=== PATIENT | female | born 1955 | race Caucasian/White ===

== ENCOUNTER → 2016-08-23 | Outpatient (CLI) | payer BC ==
[2013-01-29 12:27] VITALS: BP 121/69
[2016-08-23 17:41] LABS: ALANINE AMINOTRANSFERASE 14 Units/L (12-78); ASPARTATE AMINO TRANSFERASE 10 Units/L (15-37)
== END ==
LOC: LAB 17:00
PROVIDERS: ATTEND Podiatrist
DX: B35.1 Tinea unguium (principal)
CPT/HCPCS: 36415; 84450; 84460

== ENCOUNTER 2017-06-03 17:40 | Emergency (ER) | payer BC ==
[2017-06-03 17:50] VITALS: BMI 28.3
--- NOTE | 2017-06-03 18:55 | DR.GENAD ---
HPI - PCP Primary Care Physician: HORACE FRASER - HPI Comment HPI Comment: GETTING WEAK. NO FEVER. NO URI SYMYOMS. NOT HOLDING DOWN FLUIDS. - Complaint/Symptoms Chief Complaint Doctors Comments: ABDOMINAL PAIN, CRAPING WITH N/V/D FOR SEVERAL HOURS. Chief Complaint:: PT C/O N/V/D THAT STARTED THIS AM AT 0700 PT STATES " I HOPE I DON'T HAVE THE FLU".. PT DENIES FEVER CCC. PT C/O CRAMPING IN HER ABD ALSO. - Nurses notes reviewed Nurses Notes Review: Yes - Source History Provided: Patient - Mode of Arrival Mode of Arrival: Ambulatory - Timing Onset of Chief Complaint: 06/03/17 Came on: Suddenly - Duration Duration: Constant Duration: Hours - Severity Severity: Moderate PMH - PMH Past Medical History: Yes Past Medical History: Diabetes Past Surgical History: Yes Surgical History: Angioplasty/Stents, Appendectomy, , Cholecystectomy Past Surgical History Comment: 7 SURGERIES SINCE 1981, KNEE WRISTS, THROAT , TUBAL - Family History History of Family Medical Conditions: Yes Family Medical History: Cancer, Coronary Artery Disease, Hypertension Family Medical History Comment: BROTHER HAS HEART CONDITION, - Social History Does patient currently use any type of tobacco product: Yes Have you used tobacco products in the last 12 months: Yes Type of Tobacco Use: None How many years tobacco product used: 35 Does any household member use tobacco: No Alcohol Use: None Do you use any recreational Drugs:: No Lives With: Alone Lives Where: Home - infectious screening In the last 2 months have you had wt loss of >10#?: NO Have you had fever, night sweats or hemotysis?: No Have you traveled outside the country in the last 6 months?: No Isolation: Standard ROS - Review of Systems Constitutional: Weakness, Fatigue, Loss of Appetite. negative: Chills, Fever Eyes: No Symptoms Reported. negative: Eye Pain, Discharge ENTM: No Symptoms Reported. negative: Ear Pain, Nose Discharge, Nose Congestion , Throat Pain Respiratoy: Non-Productive Cough Cardiovascular: No Symptoms Reported Gastrointestinal/Abdominal: Abdominal Pain, Diarrhea, Nausea, Vomiting Genitourinary: No Symptoms Reported Neurological: No Symptoms Reported Musculoskeletal: Muscle Pain Integumentary: No Symptoms Reported Endocrine: No Symptoms Reported All Other Systems: Reviewed and Negative PE - Vital Signs Vitals: Temperature 96.9 F Pulse Rate 101 Respiratory Rate 18 Blood Pressure [Right Arm] 121/69 Blood Pressure 121/69 O2 Sat by Pulse Oximetry 97 - General Limitations: No Limitations General Appearance: Alert - Head Head Exam: Normal Inspection - Eyes Eye exam: Normal Appearance - ENT ENT Exam: Normal External Ear Exam External Ear Exam: Normal External Inspection TM/Canal Exam: Bilateral Normal Nose Exam: Normal Nose Exam Mouth Exam: Normal Inspection Throat Exam: Normal Inspection - Neck Neck Exam: Trachea Midline - Chest Chest Inspection: Symmetric Chest Wall Rise - Respiratory Respiratory Exam: Normal Lung Sounds Bilat Respiratory Exam: Bilateral Clear to Auscultation - Cardiovascular Cardiovascular Exam: Regular Rate, Normal Rhythm, Normal Heart Sounds - Abdominal Exam Abdominal Exam: Normal Bowel Sounds, Soft, Tenderness Abdominal Tenderness: Diffuse, Moderate - Extremities Extremities Exam: Normal Inspection - Back Back Exam: Normal Inspection - Neurologic Neurological Exam: Alert, Oriented X3 - Psychiatric Psychiatric Exam: Normal Affect, Normal Mood - Skin Skin Exam: Normal Color MDM - Additional Information Additional Information Obtained From: Family - Differential Diagnosis Differential Diagnosis: ABDOMNINAL PAIN, GASTROENTERITIS Course - Treatment Treatment: SEE ORDERS. IV FLUIDS AND IV NAUSEA MED IN ED. - Reevaluation 1st: Improved - Education/Counseling Education/Counseling: Patient, Family, Education Educated On: Treatment, Diagnosis, Needs for Follow Up ROR - Labs Reviewed Laboratory Results Reviewed?: Yes Result Diagrams: 06/03/17 19:10 06/03/17 19:10 Laboratory: WBC 8.3 X10^3/uL (3.6-10.0) 06/03/17 19:10 RBC 5.89 X10^6/uL (3.5-5.4) H 06/03/17 19:10 Hgb 17.2 g/dL (12.0-16.0) H 06/03/17 19:10 Hct 49.9 % (36.0-47.0) H 06/03/17 19:10 MCV 84.8 fL (80.0-100.0) 06/03/17 19:10 MCH 29.2 pg (27.0-34.0) 06/03/17 19:10 MCHC 34.4 g/dL (33.0-35.0) 06/03/17 19:10 RDW 14.6 % (11.6-16.5) 06/03/17 19:10 Plt Count 202 X10^3/uL (150.0-450.0) 06/03/17 19:10 MPV 8.6 fL (7.4-11.0) 06/03/17 19:10 Neut % 89.5 % (42.0-75.0) H 06/03/17 19:10 Lymph % 6.2 % (21.0-51.0) L 06/03/17 19:10 Crane % 3.8 % (0.0-13.0) 06/03/17 19:10 Eos % 0.1 % (0.9-2.9) L 06/03/17 19:10 Baso % 0.4 % (0.2-1.0) 06/03/17 19:10 Neut # 7.4 x10^3/uL (2.2-4.8) H 06/03/17 19:10 Lymph # 0.5 X10^3/uL (1.3-2.9) L 06/03/17 19:10 Crane # 0.3 x10^3/uL (0.3-0.8) 06/03/17 19:10 Eos # 0.0 x10^3/uL (0.0-0.2) 06/03/17 19:10 Baso # 0.0 X10^3/uL (0.0-0.1) 06/03/17 19:10 Absolute Nucleated RBC 0.1 /100WBC 06/03/17 19:10 Sodium 136 mmol/L (136-145) 06/03/17 19:10 Corrected Sodium 137 mmol/L (136-145) 06/03/17 19:10 Potassium 4.1 mmol/L (3.5-5.1) 06/03/17 19:10 Chloride 101 mmol/L (98-107) 06/03/17 19:10 Carbon Dioxide 27.3 mmol/L (21-32) 06/03/17 19:10 BUN 19 mg/dL (7-18) H 06/03/17 19:10 Creatinine 0.85 mg/dL (0.55-1.02) 06/03/17 19:10 Est GFR (MDRD) Af Amer > 60 (>60) 06/03/17 19:10 Est GFR (MDRD) Non-Af > 60 (>60) 06/03/17 19:10 Glucose 135 mg/dL (65-99) H 06/03/17 19:10 Calcium 8.5 mg/dL (8.5-10.1) 06/03/17 19:10 Corrected Calcium 9.1 mg/dL (8.5-10.1) 06/03/17 19:10 Total Bilirubin 0.40 mg/dL (0.2-1.0) 06/03/17 19:10 AST 11 Units/L (15-37) L 06/03/17 19:10 ALT 12 Units/L (12-78) 06/03/17 19:10 Alkaline Phosphatase 68 Units/L (46-116) 06/03/17 19:10 Total Protein 6.8 g/dL (6.4-8.2) 06/03/17 19:10 Albumin 3.3 g/dL (3.4-5.0) L 06/03/17 19:10 Globulin 3.5 g/dL (2.5-4.5) 06/03/17 19:10 Albumin/Globulin Ratio 0.9 Ratio (1.1-2.1) L 06/03/17 19:10 Amylase 42 Units/L (25-115) 06/03/17 19:10 Lipase 94 Units/L (73-393) 06/03/17 19:10 Influenza Type A (PCR) Negative (NEGATIVE) 06/03/17 18:45 Influenza Type B (PCR) Negative (NEGATIVE) 06/03/17 18:45 - XRAY XRAY Interpreted by: Radiologist XRAY Findings: REPORT DISCUSS WITH PATIENT. - Diagnosis Discharge Problem: Gastroenteritis Abdominal pain Qualifiers: Abdominal location: generalized Qualified Code(s): R10.84 - Generalized abdominal pain - Discharge Plan Condition: Stable Prescriptions: Dicyclomine HCl [Bentyl Cap 10 mg] 10 mg PO TID #15 cap Diphenoxylate/Atropine [Lomotil] 1 tab PO TID #15 tab Ondansetron [Zofran ODT 8 mg] 8 mg PO Q8H PRN #12 tab PRN Reason: Nausea/Vomiting - Follow ups/Referrals Follow ups/Referrals: Sudarshan Smith [Primary Care Provider] - 3 days - Instructions Instructions: Abdominal Pain, Adult, [id number], Viral Gastroenteritis, Adult , [id number] Additional Instructions: RETURN TO ED IF WORSE.
[2017-06-03] MEDS ORDERED: NS 1000 ML 1,000 ML IV ONE (19:02)
[2017-06-03] MEDS ORDERED: ZOFRAN INJ 4 MG VIAL IVP ONE (19:03)
[2017-06-03] MEDS ORDERED: NS 1000 ML 1,000 ML ONE (19:05)
[2017-06-03] MEDS ORDERED: ZOFRAN INJ 4 MG VIAL ONE (19:06)
[2017-06-03 19:16] LABS: BASOPHILS % (AUTO) 0.4 % (0.2-1.0); EOSINOPHILS % (AUTO) 0.1 % (0.9-2.9); HEMATOCRIT 49.9 % (36.0-47.0); HEMOGLOBIN 17.2 g/dL (12.0-16.0); LYMPHOCYTES # (AUTO) 0.5 X10^3/uL (1.3-2.9); LYMPHOCYTES % (AUTO) 6.2 % (21.0-51.0); MEAN CORPUSCULAR HEMOGLOBIN 29.2 pg (27.0-34.0); MEAN CORPUSCULAR HGB CONC 34.4 g/dL (33.0-35.0); MEAN CORPUSCULAR VOLUME 84.8 fL (80.0-100.0); MEAN PLATELET VOLUME 8.6 fL (7.4-11.0); MONOCYTES # (AUTO) 0.3 x10^3/uL (0.3-0.8); MONOCYTES % (AUTO) 3.8 % (0.0-13.0); NEUTROPHILS # (AUTO) 7.4 x10^3/uL (2.2-4.8); NEUTROPHILS % (AUTO) 89.5 % (42.0-75.0); PLATELET COUNT 202 X10^3/uL (150.0-450.0); RED BLOOD COUNT 5.89 X10^6/uL (3.5-5.4); RED CELL DISTRIBUTION WIDTH 14.6 % (11.6-16.5); WHITE BLOOD COUNT 8.3 X10^3/uL (3.6-10.0)
[2017-06-03 19:48] LABS: ALANINE AMINOTRANSFERASE 12 Units/L (12-78); ALBUMIN 3.3 g/dL (3.4-5.0); ALKALINE PHOSPHATASE 68 Units/L (46-116); AMYLASE 42 Units/L (25-115); ASPARTATE AMINO TRANSFERASE 11 Units/L (15-37); BLOOD UREA NITROGEN 19 mg/dL (7-18); CALCIUM 8.5 mg/dL (8.5-10.1); CARBON DIOXIDE 27.3 mmol/L (21-32); CHLORIDE 101 mmol/L (98-107); COR CA(FOR HYPOALB) 9.1 mg/dL (8.5-10.1); COR NA(FOR HYPERGLY) 137 mmol/L (136-145); CREATININE 0.85 mg/dL (0.55-1.02); LIPASE 94 Units/L (73-393); SODIUM 136 mmol/L (136-145); TOTAL PROTEIN 6.8 g/dL (6.4-8.2); eGFR BLACK RACES > 60 (>60); eGFR NON BLACK RACES > 60 (>60)
--- NOTE | 2017-06-03 20:37 | RAD ---
ACUTE ABDOMINAL SERIES CLINICAL HISTORY: 62-year-old female with nausea, vomiting and diarrhea COMPARISON: None. FINDINGS: AP chest radiograph demonstrates normal cardiopericardial silhouette. Prominent perihilar lung markin gs and interstitium. There is no focal consolidation, pleural effusion or pneumothorax. Pulmonary vas cularity is normal. Abdominal radiographs demonstrate a nonobstructive bowel gas pattern. Gas and stool are seen througho ut the colon. There is no small bowel distention. There is no radiographic evidence of pneumoperitone um. Imaged osseous structures are intact. Soft tissues are unremarkable. IMPRESSION: 1. Prominent perihilar lung markings and interstitium, likely chronic. Correlate clinically. 2. Nonobstructive bowel gas pattern without radiographic evidence of pneumoperitoneum. Reported By:
[2017-06-03] MEDS ORDERED: LOMOTIL PO ONE (21:07)
[2017-06-03] MEDS ORDERED: LOMOTIL ONE (21:13)
[2017-06-03 21:21] VITALS: BP 126/71
== END 2017-06-03 21:18 | disposition home or self-care (01) ==
LOC: ER 17:58
DX: A08.4 Viral intestinal infection, unspecified (principal); R10.84 Generalized abdominal pain
CPT/HCPCS: 36415; 74022; 80053; 82150; 83690; 85025; 87502; 96365; 96374; 99283; 99284; A4222; J2405

== ENCOUNTER 2017-09-27 21:43 | Emergency (ER) | payer BC ==
[2017-09-27 21:53] VITALS: BP 136/63; BMI 26.9
--- NOTE | 2017-09-27 22:34 | DR.GENAD ---
HPI - PCP Primary Care Physician: HORACE - Complaint/Symptoms Chief Complaint Doctors Comments: Patient presents with complaint of right shoulder pain for the past 10 She denies trauma. She has fibromyalgia and the gabapentin is not helping. Chief Complaint:: RIGHT SHOULDER PAIN AND DECREASED ROM ONSET TODAY DENIES INJURY Self Treatment fo Chief Complaint: ALEVE - Source History Provided: Patient - Mode of Arrival Mode of Arrival: Ambulatory - Timing Onset of Chief Complaint: 09/27/17 PMH - PMH Past Medical History: Yes Past Medical History: Diabetes Past Surgical History: Yes Surgical History: Angioplasty/Stents, Appendectomy, , Cholecystectomy - Family History History of Family Medical Conditions: Yes Family Medical History: Cancer, Coronary Artery Disease, Hypertension - Social History Does patient currently use any type of tobacco product: Yes Have you used tobacco products in the last 12 months: Yes Type of Tobacco Use: Cigarettes Does any household member use tobacco: No Alcohol Use: None Do you use any recreational Drugs:: No Lives With: Alone Lives Where: Home - infectious screening In the last 2 months have you had wt loss of >10#?: NO Have you had fever, night sweats or hemotysis?: No Have you traveled outside the country in the last 6 months?: No Isolation: Standard ROS - Review of Systems Eyes: No Symptoms Reported ENTM: No Symptoms Reported Respiratoy: No Symptoms Reported Cardiovascular: No Symptoms Reported Gastrointestinal/Abdominal: No Symptoms Reported Genitourinary: No Symptoms Reported Neurological: No Symptoms Reported Musculoskeletal: No Symptoms Reported Integumentary: No Symptoms Reported Hematologic/Lymphatic: No Symptoms Reported Endocrine: No Symptoms Reported Psychiatric: No Symptoms Reported All Other Systems: Reviewed and Negative PE - Vital Signs Vitals: Temperature 98.7 F Pulse Rate 82 Respiratory Rate 18 Blood Pressure [Right Arm] 126/71 Blood Pressure 136/63 O2 Sat by Pulse Oximetry 96 - General General Appearance: Alert, In No Apparent Distress - Head Head Exam: Normal Inspection, Atraumatic - Eyes Eye exam: Normal Appearance, PERRL, EOMI - ENT ENT Exam: Normal Exam External Ear Exam: Normal External Inspection TM/Canal Exam: Bilateral Normal Nose Exam: Normal Nose Exam Mouth Exam: Normal Inspection Throat Exam: Normal Inspection - Neck Neck Exam: Normal Inspection, Full ROM - Chest Chest Inspection: Normal Inspection, Symmetric Chest Wall Rise - Respiratory Respiratory Exam: Normal Lung Sounds Bilat Respiratory Exam: Bilateral Clear to Auscultation - Cardiovascular Cardiovascular Exam: Regular Rate, Normal Rhythm - Abdominal Exam Abdominal Exam: Normal Inspection, Normal Bowel Sounds Abdominal Tenderness: negative: RUQ, RLQ, LUQ, LLQ, Epigastrium, Suprapubic, Diffuse, Mild, Moderate, Severe, Other - Extremities Extremities Exam: Normal Inspection, Full ROM - Back Back Exam: Normal Inspection, Full ROM - Neurologic Neurological Exam: Alert, Oriented X3, CN II-XII Intact - Psychiatric Psychiatric Exam: Normal Affect, Normal Mood - Skin Skin Exam: Warm, Dry, Intact - Diagnosis Discharge Problem: Fibromyalgia affecting upper arm - Discharge Plan Condition: Stable - Follow ups/Referrals Follow ups/Referrals: NFD,None [Primary Care Provider] - 3 days - Instructions
[2017-09-27] MEDS ORDERED: MORPHINE SULFATE INJ 4 MG IM ONE (22:42)
[2017-09-27] MEDS ORDERED: MORPHINE SULFATE INJ 4 MG ONE (22:44)
--- NOTE | 2017-09-27 22:48 | RAD ---
HISTORY: Right shoulder pain and limited range of motion. Study: Right shoulder for views Comparison: None. Findings: There is no evidence of acute fracture or dislocation. The right glenohumeral joint and acromioclavic ular joint are intact. There appears to be a prominent spur along the inferior margin of the right a cromion process. Spur formation is noted along the tip of the distal clavicle. No significant soft ti ssue abnormality is identified. The visualized portions of the scapula are unremarkable. The visualized portions of the chest are un remarkable. IMPRESSION: 1. No acute osseous abnormality involving the right shoulder. Arthritic change as described. Reported By:
== END 2017-09-27 23:16 | disposition home or self-care (01) ==
LOC: ER 21:56
DX: M79.7 Fibromyalgia (principal)
CPT/HCPCS: 73030; 96372; 99282; J2270